=== PATIENT | female | born 1985 | race Caucasian/White ===

== ENCOUNTER 2020-05-18 21:58 | Emergency (ER) | payer OTHER ==
[~2020-05-18] VITALS: Ht 157.5 cm; Wt 90.7 kg
--- NOTE | 2020-05-18 22:00 | NUR ---
PT MATILDE BURDICKS. TAKEN TO OVERFLOW TENT
[2020-05-18 22:05] VITALS: BP 129/79
--- NOTE | 2020-05-18 22:05 | NUR ---
RECEIVED A 35/F FROM EMS FOR A C/O GENERALIZED WEAKNESS AND NAUSE/VOMITTING SECONDARY TO COVID DIAGNOSIS. PT REPORTS INTERMITTENT NAUSEA AND VOMITTING THROUGOUT THE DAY. PT RECEIVED 4MG ZOFRAN OTD [facility] WITH RELIEF.
[2020-05-18] MEDS ORDERED: ACETAMINOPHEN EXTRA STRENGTH 500 MG TAB PO ONE (22:35)
[2020-05-18 23:16] VITALS: BP 129/79
--- NOTE | 2020-05-18 23:16 | NUR ---
Patient discharged with v/s stable. Written and verbal after care instructions given and explained. Patient alert, oriented and verbalized understanding of instructions. Ambulatory with steady gait. All questions addressed prior to discharge. ID band removed. Patient advised to follow up with PMD. Rx of motrin, tylenol & zofran given. Patient educated on indication of medication including possible reaction and side effects. Opportunity to ask questions provided and answered.
== END 2020-05-18 23:16 | disposition home or self-care (01) ==
LOC: MED 21:58
DX: U07.1 COVID-19 (principal); J12.89 Other viral pneumonia; R11.2 Nausea with vomiting, unspecified
CPT/HCPCS: 99283